=== PATIENT | male | born 1960 | race Caucasian/White ===

== ENCOUNTER → 2016-12-19 | Outpatient (CLI) | payer MEDICAID | LOC: CIMAGING 18:50 | PROVIDERS: ATTEND Family Medicine | DX: M54.2 Cervicalgia (principal); R20.2 Paresthesia of skin; M50.30 Other cervical disc degeneration, unspecified cervical region; M25.78 Osteophyte, vertebrae; M17.12 Unilateral primary osteoarthritis, left knee; M25.462 Effusion, left knee | CPT/HCPCS: 72050-PO; 73562-PO ==

== ENCOUNTER → 2017-06-14 | Outpatient (CLI) | payer MEDICAID | LOC: CIMAGING 16:04 | PROVIDERS: ATTEND Family Medicine | DX: S99.921A Unspecified injury of right foot, initial encounter (principal); M79.89 Other specified soft tissue disorders; M77.31 Calcaneal spur, right foot; M21.42 Flat foot [pes planus] (acquired), left foot | CPT/HCPCS: 73610-PO; 73630-PO ==